=== PATIENT | male | born 1965 | race Caucasian/White ===

== ENCOUNTER 2018-08-24 09:03 | Observation (INO) | payer SELFPAY ==
[2018-08-24] MEDS ORDERED: NS 1,000 ML IV ONE ×2 (09:27→10:19)
--- NOTE | 2018-08-24 09:27 | EDPHY ---
General - History History Review: I reviewed the patient's medical records Smoking Status: Never smoked Time Seen by Provider: 08/24/18 09:17 Narrative: CHIEF COMPLAINT: Abdominal pain HISTORY OF PRESENT ILLNESS: Patient presents by private vehicle with complaints of right lower quadrant abdominal pain. He states that he felt fine yesterefil around 4:00 p.m.. At that time he developed some upper abdominal pain the described as "pressure and sprain type of pain." He felt as though he needs to have a bowel movement but could not. He also described as "I felt like I needed to move something through my colon, like when I drink kombucha." Over the course of the evening his pain significantly increased to a rating of severe this morning. He did not sleep last night. He had nausea but no vomiting. No recent diarrhea constipation. No previous abdominal surgeries or pathology. No recent trauma. He does report a recent upper respiratory infection over the past 2-3 weeks with mild cough. No chest pain or shortness of breath. Some chills but no fever. He has not had anything in a drink since last night around 8:00 p.m.. Pain is worse with movement palpation. Minimal improvement rest. Does not radiate. He is here because he is concerned it has his appendix. No other associated complaints or modifying factors. REVIEW OF SYSTEMS: 10 systems were reviewed and negative with the exception of the elements mentioned in the history of present illness. PCP: Dr. Mcgrath, and [facility] SPECIALISTS: None PAST MEDICAL HISTORY: Low testosterone. Hypertension, anxiety, "autoimmune deficiency" PAST SURGICAL HISTORY: No recent surgical history SOCIAL HISTORY: Nonsmoker. Lives independently with his girlfriend. 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 Ambulatory. Conversing in full sentences Head: normocephalic, atraumatic Eyes: Pupils equal and round, no conjunctival pallor or injection ENT, Mouth: Mucous membranes slightly dry. Airway patent. Neck: Normal inspection, supple, non-tender Respiratory: Mild rhonchi. No wheezing, crackles or diminishment. No retractions or distress Cardiovascular: Regular rate and rhythm. No murmur Gastrointestinal: Bowel sounds present all 4 quadrants. Abdomen is soft and nondistended. There is moderate tenderness in right lower quadrant and McBurney 's point. Guarding in the right lower quadrant. No tympany. No rigidity. No CVA tenderness. No left-sided tenderness. Negative Rovsing. Equivocal obturator. Back: non-tender, no bony abnormalities Neurological: A&O, nonfocal, normal gait Skin: Warm and dry, no rash Extremities: Nontender, no pedal edema Psychiatric: Mood and affect normal DIFFERENTIAL DIAGNOSES: Including but not limited to appendicitis, colitis, diverticulitis, mesenteric adenitis, enteritis, ureteral colic, renal colic MDM: 9:20 a.m. Acute right lower quadrant tenderness with guarding in voluntarily. Vital signs are within normal limits. He is nontoxic well-appearing. Bowel sounds are present. I do feel he warrants CT imaging given the guarding of the abdomen. Thus I have ordered an i-STAT for expedited CT scan. IV fluid will be administered. Pain medication ordered. He is in no acute distress. He has consented to the CT scan. 9:40 a.m. I-STAT performed and creatinine is normal at 1.0. document image technician notified. 10:10 a.m. I have reviewed the CT scan images myself and with Dr. Lopez, without radiologist. There is evidence of acute appendicitis with surrounding mesenteric stranding. The official radiology interpretation is pending, but I will page surgery further consultation. He is in no acute distress. 11:05 a.m. Case discussed with radiologist Dr. Leblanc. Acute appendicitis. There is also no abnormality in the upper rectum on the left side that will need to be further evaluated outpatient. I discussed this with the patient and will discussed with general surgeon. 11:08 a.m. Case discussed with surgeon Dr. Castillo. He has accepted the patient is service. Strict NPO. Antibiotics discussed. He is admitted in stable condition. He also recommends outpatient colonoscopy for the rectal abnormality on CT scan. 11:40 a.m. Patient has been evaluated by Dr. Castillo. Continue with plan for laparoscopic surgical intervention. SUPERVISION: Patient was independently examined, but I discussed the case with my secondary supervising physician Dr. Lopez CONSULTATION: Surgery (Kd Lugo) Medical Decision Making: PHYSICIAN DOCUMENTATION: The patient was evaluated and managed by the Physician Data Technical Lead and myself. I have reviewed the chart and agree with the findings and plan of care as documented. In addition, I examined the patient myself at 1010. History confirmed as nontraumatic right lower quadrant abdominal pain. Physical findings as follows: Guarding on the right lower quadrant at McBurney's point. CT reviewed, plan for IV antibiotics and General surgery consultation for probable appendicitis. I am the secondary supervising physician. (Porfirio Lopez) - Objective Vital Signs: Initial Vital Signs Temperature (C) 99.1 F 08/24/18 09:13 Heart Rate 76 08/24/18 09:13 Respiratory Rate 16 08/24/18 09:13 Blood Pressure 139/89 H 08/24/18 09:13 O2 Sat (%) 94 08/24/18 09:13 O2 Delivery Mode Nasal Cannula O2 (L/minute) 2 Allergies/Adverse Reactions: No Known Allergies Allergy (Unverified 08/24/18 09:11) Home Medications: Medication Instructions Recorded Lisinopril 11/17/09 Citalopram 08/24/18 Testosterone 08/24/18 Laboratory Results: Laboratory Results 08/24/18 09:33 08/24/18 08/24/18 08/24/18 10:56 09:38 09:33 WBC RBC Hgb POC Hgb 17.7 gm/dL H gm/dL (13.7-17.5) Hct POC Hct 52 % H % (40-51) MCV MCH MCHC RDW Plt Count MPV Neut % (Auto) Lymph % (Auto) [place] % (Auto) Eos % (Auto) Baso % (Auto) Nucleat RBC Rel Count Absolute Neuts (auto) Absolute Lymphs (auto) Absolute Monos (auto) Absolute Eos (auto) Absolute Basos (auto) Absolute Nucleated RBC Immature Gran % Immature Gran # POC Sodium 140 mEq/L mEq/L (135-145) POC Potassium 3.9 mEq/L mEq/L (3.3-5.0) POC Chloride 103 mEq/L mEq/L (97-110) POC BUN 12 mg/dL mg/dL (7-23) POC Creatinine 1.0 mg/dL mg/dL (0.7-1.3) POC Glucose 128 mg/dL H mg/dL (70-100) Total Bilirubin 1.4 mg/dL mg/dL (0.1-1.4) Conjugated Bilirubin 0.1 mg/dL mg/dL (0.0-0.5) Unconjugated Bilirubin 1.3 mg/dL H mg/dL (0.0-1.1) AST 23 IU/L IU/L (17-59) ALT 22 IU/L IU/L (21-72) Alkaline Phosphatase 53 IU/L IU/L (38-126) Total Protein 7.7 g/dL g/dL (6.3-8.2) Albumin 4.3 g/dL g/dL (3.5-5.0) Lipase 59 IU/L IU/L (23-300) Urine Color PALE YELLOW Urine Appearance CLEAR Urine pH 7.0 (5.0-7.5) Ur Specific [place] 1.017 (1.002-1.030) Urine Protein NEGATIVE (NEGATIVE) Urine Ketones NEGATIVE (NEGATIVE) Urine Blood NEGATIVE (NEGATIVE) Urine Nitrate NEGATIVE (NEGATIVE) Urine Bilirubin NEGATIVE (NEGATIVE) Urine Urobilinogen NEGATIVE EU EU (0.2-1.0) Ur Leukocyte Esterase NEGATIVE (NEGATIVE) Urine RBC NONE SEEN /hpf /hpf (0-3) Urine WBC 0-1 /hpf /hpf (0-3) Ur Epithelial Cells NONE SEEN /lpf /lpf (NONE-1+) Urine Mucus TRACE /lpf /lpf (NONE-1+) Urine Glucose NEGATIVE (NEGATIVE) 08/24/18 09:33 WBC 15.15 10^3/uL H 10^3/uL (3.80-9.50) RBC 5.19 10^6/uL 10^6/uL (4.40-6.38) Hgb 17.2 g/dL g/dL (13.7-17.5) POC Hgb Hct 48.2 % % (40.0-51.0) POC Hct MCV 92.9 fL fL (81.5-99.8) MCH 33.1 pg pg (27.9-34.1) MCHC 35.7 g/dL g/dL (32.4-36.7) RDW 12.4 % % (11.5-15.2) Plt Count 184 10^3/uL 10^3/uL (150-400) MPV 10.0 fL fL (8.7-11.7) Neut % (Auto) 85.1 % H % (39.3-74.2) Lymph % (Auto) 8.4 % L % (15.0-45.0) [place] % (Auto) 5.8 % % (4.5-13.0) Eos % (Auto) 0.1 % L % (0.6-7.6) Baso % (Auto) 0.2 % L % (0.3-1.7) Nucleat RBC Rel Count 0.0 % % (0.0-0.2) Absolute Neuts (auto) 12.89 10^3/uL H 10^3/uL (1.70-6.50) Absolute Lymphs (auto) 1.27 10^3/uL 10^3/uL (1.00-3.00) Absolute Monos (auto) 0.88 10^3/uL H 10^3/uL (0.30-0.80) Absolute Eos (auto) 0.02 10^3/uL L 10^3/uL (0.03-0.40) Absolute Basos (auto) 0.03 10^3/uL 10^3/uL (0.02-0.10) Absolute Nucleated RBC 0.00 10^3/uL 10^3/uL (0-0.01) Immature Gran % 0.4 % % (0.0-1.1) Immature Gran # 0.06 10^3/uL 10^3/uL (0.00-0.10) POC Sodium POC Potassium POC Chloride POC BUN POC Creatinine POC Glucose Total Bilirubin Conjugated Bilirubin Unconjugated Bilirubin AST ALT Alkaline Phosphatase Total Protein Albumin Lipase Urine Color Urine Appearance Urine pH Ur Specific [place] Urine Protein Urine Ketones Urine Blood Urine Nitrate Urine Bilirubin Urine Urobilinogen Ur Leukocyte Esterase Urine RBC Urine WBC Ur Epithelial Cells Urine Mucus Urine Glucose Medications Given: Metronidazole/Sodium Chloride (Flagyl 500 Mg (Premix)) 100 mls @ 100 mls/hr IV ONCE ONE PRN Reason: Protocol Stop: 08/24/18 11:15 Last Admin: 08/24/18 10:47 Dose: 100 mls Discontinued Medications Sodium Chloride (Ns) 1,000 mls @ 0 mls/hr IV EDNOW ONE; Wide Open PRN Reason: Protocol Stop: 08/24/18 09:28 Last Admin: 08/24/18 09:38 Dose: 1,000 mls Ceftriaxone Sodium/Dextrose (Rocephin 1 Gm (Premix)) 50 mls @ 100 mls/hr IV EDNOW ONE PRN Reason: Protocol Stop: 08/24/18 10:45 Last Admin: 08/24/18 10:42 Dose: 50 mls Sodium Chloride (Ns) 1,000 mls @ 0 mls/hr IV EDNOW ONE; Wide Open PRN Reason: Protocol Stop: 08/24/18 10:20 Last Admin: 08/24/18 10:43 Dose: 1,000 mls Morphine Sulfate (Morphine) 4 mg IVP EDNOW ONE Stop: 08/24/18 09:28 Last Admin: 08/24/18 09:38 Dose: 4 mg Promethazine HCl (Phenergan) 12.5 mg IVP ONCE ONE Stop: 08/24/18 09:37 Last Admin: 08/24/18 09:38 Dose: 12.5 mg Point of Care Test Results: Chemistry 08/24/18 09:38 POC Sodium 140 mEq/L mEq/L (135-145) POC Potassium 3.9 mEq/L mEq/L (3.3-5.0) POC Chloride 103 mEq/L mEq/L (97-110) POC BUN 12 mg/dL mg/dL (7-23) POC Creatinine 1.0 mg/dL mg/dL (0.7-1.3) POC Glucose 128 mg/dL H mg/dL (70-100) ISTAT H&H 08/24/18 09:38 POC Hgb 17.7 gm/dL H gm/dL (13.7-17.5) POC Hct 52 % H % (40-51) Departure - Departure Disposition: [facility] Inpatient Acute Clinical Impression: Abnormal finding on CT scan Acute appendicitis Qualifiers: Acute appendicitis type: with localized peritonitis Appendicitis gangrene presence: without gangrene Appendicitis perforation presence: without perforation Appendicitis abscess presence: without abscess Qualified Code(s): K35.30 - Acute appendicitis with localized peritonitis, without perforation or gangrene Condition: Good Additional Instructions: 1. After discharge follow-up with primary care physician to discuss further workup of your CT scan finding involving the rectum Referrals: SANDOR MCGRATH [Primary Care Provider] - As per Instructions Reji Castillo MD [Medical Doctor] - As per Instructions
[2018-08-24] MEDS ORDERED: ONDANSETRON 4 MG/2 ML VIAL ONE ×2 (09:34→14:15)
[2018-08-24] MEDS ORDERED: PROMETHAZINE HCL 25 MG/ML INJ ONE (09:36)
[2018-08-24] MEDS ORDERED: PROMETHAZINE HCL 25 MG/ML INJ IVP ONE (09:36)
[2018-08-24 09:42] LABS: PLATELET COUNT 184 10^3/uL (150-400)
[2018-08-24] MEDS ORDERED: IOPAMIDOL (ISOVUE-300) 100 ML BTL ONE (09:44)
--- NOTE | 2018-08-24 12:16 | PDGENHP ---
History and Physical - Chief Complaint abd pain - History of Present Illness 53 y/o male with one day hx abd pain localizing to the RLQ seen in the ED by Kd Lugo PA-C CT showed acute appendicitis/Surgical consult was requested History Information - Allergies/Home Medication List Allergies/Adverse Reactions: No Known Allergies Allergy (Unverified 08/24/18 09:11) Home Medications: Lisinopril [Zestril 40 mg (*)] 40 mg PO HS 11/17/09 [Last Taken 08/22/18] Citalopram Hydrobromide [Celexa] 40 mg PO HS 08/24/18 [Last Taken 08/22/18] Herbals/Supplements -Info Only 1 ea PO DAILY 08/24/18 [Last Taken Unknown] Ibuprofen [Motrin (*)] 200 mg PO DAILY PRN 08/24/18 [Last Taken Unknown] Testosterone [ANDROGEL 1% 5gm pkt (*)] 5 gm TD DAILY 08/24/18 [Last Taken ] I have personally reviewed and updated: family history, medical history, social history, surgical history - Past Medical History hypertension - Surgical History Reports: no pertinent surgical hx - Family History Positive for: non-pertinent - Social History Smoking Status: Never smoked Alcohol Use: Rarely Drug Use: None Review of Systems Review of Systems: Constitutional: Reports: recent illness (felt like a viral syndrome) EENMT: Reports: ear discharge Cardiac: Reports: no symptoms Respiratory: Reports: no symptoms Gastrointestinal: Reports: abdominal pain, abdominal distention, constipation, nausea Genitourinary: Reports: no symptoms Muscolosketal: Reports: no symptoms Physical Exam Physical Exam: Temp Pulse Resp BP Pulse Ox 36.5 C 56 L 18 133/88 H 95 08/24/18 10:00 08/24/18 10:00 08/24/18 10:00 08/24/18 10:00 08/24/18 10:00 Constitutional: appears nourished Eyes: anicteric sclera Ears, Nose, Mouth, Throat: dry mucous membranes Cardiovascular: regular rate and rhythym, no murmur, rub, or gallop Respiratory: no respiratory distress, no rales or rhonchi, clear to auscultation Gastrointestinal: other (hypoactive bowel sounds, tender RM/RUQ with guarding) Genitourinary: no bladder fullness Skin: warm Neurologic: AAOx3 Psychiatric: interacting appropriately, not anxious, other (expressed concerns about his 's surgery scheduled for tomorrow here at [facility]) Lab Data & Imaging Review 08/24/18 09:33 WBC 15.15 10^3/uL (3.80-9.50) H 08/24/18 09:33 RBC 5.19 10^6/uL (4.40-6.38) 08/24/18 09:33 Hgb 17.2 g/dL (13.7-17.5) 08/24/18 09:33 POC Hgb 17.7 gm/dL (13.7-17.5) H 08/24/18 09:38 Hct 48.2 % (40.0-51.0) 08/24/18 09:33 POC Hct 52 % (40-51) H 08/24/18 09:38 MCV 92.9 fL (81.5-99.8) 08/24/18 09:33 MCH 33.1 pg (27.9-34.1) 08/24/18 09:33 MCHC 35.7 g/dL (32.4-36.7) 08/24/18 09:33 RDW 12.4 % (11.5-15.2) 08/24/18 09:33 Plt Count 184 10^3/uL (150-400) 08/24/18 09:33 MPV 10.0 fL (8.7-11.7) 08/24/18 09:33 Neut % (Auto) 85.1 % (39.3-74.2) H 08/24/18 09:33 Lymph % (Auto) 8.4 % (15.0-45.0) L 08/24/18 09:33 [place] % (Auto) 5.8 % (4.5-13.0) 08/24/18 09:33 Eos % (Auto) 0.1 % (0.6-7.6) L 08/24/18 09:33 Baso % (Auto) 0.2 % (0.3-1.7) L 08/24/18 09:33 Nucleat RBC Rel Count 0.0 % (0.0-0.2) 08/24/18 09:33 Absolute Neuts (auto) 12.89 10^3/uL (1.70-6.50) H 08/24/18 09:33 Absolute Lymphs (auto) 1.27 10^3/uL (1.00-3.00) 08/24/18 09:33 Absolute Monos (auto) 0.88 10^3/uL (0.30-0.80) H 08/24/18 09:33 Absolute Eos (auto) 0.02 10^3/uL (0.03-0.40) L 08/24/18 09:33 Absolute Basos (auto) 0.03 10^3/uL (0.02-0.10) 08/24/18 09:33 Absolute Nucleated RBC 0.00 10^3/uL (0-0.01) 08/24/18 09:33 Immature Gran % 0.4 % (0.0-1.1) 08/24/18 09:33 Immature Gran # 0.06 10^3/uL (0.00-0.10) 08/24/18 09:33 POC Sodium 140 mEq/L (135-145) 08/24/18 09:38 POC Potassium 3.9 mEq/L (3.3-5.0) 08/24/18 09:38 POC Chloride 103 mEq/L (97-110) 08/24/18 09:38 POC BUN 12 mg/dL (7-23) 08/24/18 09:38 POC Creatinine 1.0 mg/dL (0.7-1.3) 08/24/18 09:38 POC Glucose 128 mg/dL (70-100) H 08/24/18 09:38 Total Bilirubin 1.4 mg/dL (0.1-1.4) 08/24/18 09:33 Conjugated Bilirubin 0.1 mg/dL (0.0-0.5) 08/24/18 09:33 Unconjugated Bilirubin 1.3 mg/dL (0.0-1.1) H 08/24/18 09:33 AST 23 IU/L (17-59) 08/24/18 09:33 ALT 22 IU/L (21-72) 08/24/18 09:33 Alkaline Phosphatase 53 IU/L (38-126) 08/24/18 09:33 Total Protein 7.7 g/dL (6.3-8.2) 08/24/18 09:33 Albumin 4.3 g/dL (3.5-5.0) 08/24/18 09:33 Lipase 59 IU/L (23-300) 08/24/18 09:33 Urine Color PALE YELLOW 08/24/18 10:56 Urine Appearance CLEAR 08/24/18 10:56 Urine pH 7.0 (5.0-7.5) 08/24/18 10:56 Ur Specific [place] 1.017 (1.002-1.030) 08/24/18 10:56 Urine Protein NEGATIVE (NEGATIVE) 08/24/18 10:56 Urine Ketones NEGATIVE (NEGATIVE) 08/24/18 10:56 Urine Blood NEGATIVE (NEGATIVE) 08/24/18 10:56 Urine Nitrate NEGATIVE (NEGATIVE) 08/24/18 10:56 Urine Bilirubin NEGATIVE (NEGATIVE) 08/24/18 10:56 Urine Urobilinogen NEGATIVE EU (0.2-1.0) 08/24/18 10:56 Ur Leukocyte Esterase NEGATIVE (NEGATIVE) 08/24/18 10:56 Urine RBC NONE SEEN /hpf (0-3) 08/24/18 10:56 Urine WBC 0-1 /hpf (0-3) 08/24/18 10:56 Ur Epithelial Cells NONE SEEN /lpf (NONE-1+) 08/24/18 10:56 Urine Mucus TRACE /lpf (NONE-1+) 08/24/18 10:56 Urine Glucose NEGATIVE (NEGATIVE) 08/24/18 10:56 Assessment & Plan Assessment: Abnormal finding on CT scan (Acute) Acute appendicitis (Acute)
[2018-08-24] MEDS ORDERED: BUPIVACAINE 0.25% 30 ML SDV ONE ×2 (12:55→12:56)
[2018-08-24] MEDS ORDERED: LR 1,000 ML IV ONE (13:28)
[2018-08-24] MEDS ORDERED: MIDAZOLAM 2 MG/2 ML VIAL IVP ONE (13:37)
--- NOTE | 2018-08-24 13:37 | PDANEPAE ---
ANE History of Present Illness here for lap velialaura ANE Past Medical History - Cardiovascular History Hx Hypertension: No Hx Arrhythmias: No Hx Chest Pain: No Hx Coronary Artery / Peripheral Vascular Disease: No Hx CHF / Valvular Disease: No Hx Palpitations: No - Pulmonary History Hx COPD: No Hx Asthma/Reactive Airway Disease: No Hx Recent Upper Respiratory Infection: No Hx Oxygen in Use at Home: No Hx Sleep Apnea: No - Endocrine History Hx Diabetes: No Hypothyroid: No Hyperthyroid: No Obesity: no - Renal History Hx Renal Disorders: No ANE Review of Systems Review of systems is: negative Review of Systems: - Exercise capacity Exercise capacity: >=4 METS ANE Patient History - Allergies Allergies/Adverse Reactions: No Known Allergies Allergy (Unverified 08/24/18 09:11) - Home Medications Home medications: home medication list seen and reviewed Home Medications: Lisinopril [Zestril 40 mg (*)] 40 mg PO HS 11/17/09 [Last Taken 08/22/18] Citalopram Hydrobromide [Celexa] 40 mg PO HS 08/24/18 [Last Taken 08/22/18] Herbals/Supplements -Info Only 1 ea PO DAILY 08/24/18 [Last Taken Unknown] Ibuprofen [Motrin (*)] 200 mg PO DAILY PRN 08/24/18 [Last Taken Unknown] Testosterone [ANDROGEL 1% 5gm pkt (*)] 5 gm TD DAILY 08/24/18 [Last Taken ] - NPO status NPO Status: no food or drink >8 hours NPO Since - Liquids (Date): 08/24/18 NPO Since - Liquids (Time): 08:30 NPO Since - Solids (Date): 08/23/18 NPO Since - Solids (Time): 16:00 - Anes Hx Anes Hx: no prior problems - Smoking Hx Smoking Status: Never smoked - Alcohol Use Alcohol Use: Rarely ANE Labs/Vital Signs - Labs Result Diagrams: 08/24/18 09:33 - Vital Signs Vital Signs: reviewed preoperatively; see RN documention for details Blood Pressure: 115/68 Heart Rate: 59 Respiratory Rate: 18 O2 Sat (%): 98 Height: 177.8 cm Weight: 77.111 kg ANE Physical Exam - Airway Neck exam: FROM Mallampati Score: Class 1 - Pulmonary Pulmonary: no respiratory distress - Cardiovascular Cardiovascular: regular rate and rhythym - ASA Status ASA Status: II ANE Anesthesia Plan Anesthesia Plan: general endotracheal anesthesia
[2018-08-24] MEDS ORDERED: PROMETHAZINE HCL 25 MG/ML INJ IVP PRN (13:44)
[2018-08-24] MEDS ORDERED: ONDANSETRON 4 MG/2 ML VIAL IVP PRN ×2 (13:44→15:23)
[2018-08-24] MEDS ORDERED: DEXAMETHASONE 4 MG/ML VIAL IVP PRN (13:44)
[2018-08-24] MEDS ORDERED: oxyCODONE IR 5 MG TAB PO PRN (13:44)
[2018-08-24] MEDS ORDERED: ALBUTEROL 3 ML DEYVIAL IH PRN (13:44)
[2018-08-24] MEDS ORDERED: HYDROCODONE/APAP 5/325 TAB PO PRN ×2 (13:44→15:23)
[2018-08-24] MEDS ORDERED: NALOXONE HCL 0.4 MG/ML INJ IVP PRN (13:44)
[2018-08-24] MEDS ORDERED: HYDROmorphONE/DILAUDID 2 MG/ML INJ IVP PRN (13:44)
[2018-08-24] MEDS ORDERED: fentaNYL 100 MCG/2 ML INJ IVP PRN (13:44)
[2018-08-24] MEDS ORDERED: PROPOFOL/EMULSION 500 MG/50 ML BOTTLE IV ONE (14:02)
[2018-08-24] MEDS ORDERED: fentaNYL 100 MCG/2 ML INJ ONE ×2 (14:05→15:33)
[2018-08-24] MEDS ORDERED: DEXAMETHASONE 4 MG/ML VIAL ONE (14:15)
[2018-08-24] MEDS ORDERED: ePHEDrine SULFATE 25 MG/5 ML SYR ONE (14:33)
[2018-08-24] MEDS ORDERED: SUGAMMADEX SODIUM 200 MG/2 ML VIAL IVP ONE (14:50)
--- NOTE | 2018-08-24 15:23 | POSTOPPROG ---
Post Op Note Date of Operation: 08/24/18 Surgeon: Reji Castillo (, FACS) Anesthesiologist: Andrew Mccoy MD Anesthesia: GET(General Endotracheal) Pre-op Diagnosis: acute appendicitis Procedure: lap appendectomy Findings: acute appendicitis Inf/Abcess present in the surg proc area at time of surgery?: Yes Depth: Organ Space EBL: Minimal (5 ml)
[2018-08-24] MEDS ORDERED: LR 1,000 ML IV SCH (15:30)
[2018-08-24] MEDS ORDERED: ALBUTEROL 3 ML DEYVIAL ONE (16:30)
[2018-08-24] MEDS: IBUPROFEN 600 MG TAB PO SCH (21:55)
[2018-08-24] MEDS: CITALOPRAM 20 MG TAB PO SCH (21:55)
[2018-08-24] MEDS: LISINOPRIL 40 MG TAB PO SCH (21:55)
--- NOTE | 2018-08-25 05:46 | GOP ---
DATE OF OPERATION: 08/24/2018 SURGEON: Reji Castillo MD, FACS ANESTHESIA: General endotracheal. ANESTHESIOLOGIST: Andrew Mccoy MD PREOPERATIVE DIAGNOSIS: Acute appendicitis. POSTOPERATIVE DIAGNOSIS: Acute appendicitis. PROCEDURE PERFORMED: Laparoscopic appendectomy. FINDINGS: Acute suppurative appendicitis with abnormal position of the cecum close to the subhepatic space. ESTIMATED BLOOD LOSS: 5 mL. DESCRIPTION OF PROCEDURE: After informed consent was obtained, the patient was brought to the operating room and placed under general anesthesia. The abdomen was prepped and draped in usual fashion. Before proceeding, a time-out and identification of the patient was performed. 0.25% Marcaine was used to infiltrate all incision sites. The first port was placed in the infraumbilical position. This was a 12 mm port placed after insufflating the abdominal cavity with CO2 gas to a pressure of 15 mmHg with a Veress needle. A 30 degree 5 mm scope was introduced, and additional 5 mm ports were placed above and below the umbilicus in the midline. This allowed introduction of atraumatic grasping forceps. The appendix was identified, grasped and retracted anteriorly. This allowed taking down the mesoappendix with a Harmonic Scalpel. After the mesoappendix was divided down to the base of the appendix, the appendix was from the cecum with a single firing of the FILOMENA stapler. The appendix was retrieved through the 12 mm port site using an Endopouch. The operative field appeared hemostatic. The umbilical fascial defect was repaired with a transfascial closure needle and 0 Vicryl suture. The pneumoperitoneum was evacuated. The remaining ports were removed. Subcutaneous tissues were closed with 3-0 Monocryl suture. Skin was closed with 4-0 Monocryl suture in a subcuticular fashion followed by Dermabond. The patient was extubated and brought to the recovery room in satisfactory condition. Needle, sponge, and instrument count were correct. COMPLICATIONS: None. /[id number]/MODL MTDD
[2018-08-25] MEDS: IBUPROFEN 600 MG TAB PO SCH ×3 (05:57→22:03)
--- NOTE | 2018-08-25 07:43 | PDDCSUM ---
Discharge Summary Discharge Summary: #[id number] BRITTANI Castillo MD, FACS
--- NOTE | 2018-08-25 07:49 | SOAPPROG ---
Downtime Inpatient MD Late Entry SOAP Note: After I left Mr. Rosales he was taken off supplemental O2 and his sats dropped into the low 80s I recommended ambulation and deep breathing/incentive spirometry and will obtain a CXR He is a daily marijuana smoker and this could contribute to his pulmonary dysfunction post operatively. If he is unable to wean off O2 will request a Hospitalist evaluation for management recommendations
--- NOTE | 2018-08-25 08:01 | SOAPPROG ---
Downtime Inpatient MD Late Entry SOAP Note: CXR shows possible pulmonary edema. Will request hospitalist consult and continue supplemental O2. Carlos Castillo MD, FACS
--- NOTE | 2018-08-25 08:16 | GDS ---
After the patient was discharged he was noted to have hypoxemia. A CXR showed R >L pulmonary edema vs. R lung infiltrate Discharge was cancelled and a hospitalist consult was requested. DISCHARGE DIAGNOSES: 1. Acute appendicitis. 2. Hypertension. 3. History of depression. HOSPITAL COURSE: For details of admission history and physical, please see dictated summary. Briefly, the patient is a 53-year-old male who presents with a 1 day history of abdominal pain, was found to have acute appendicitis, and was admitted for laparoscopic appendectomy. He received preoperatively 1 g of ceftriaxone and 500 mg of Flagyl. At time of surgery, he was found to have acute suppurative appendicitis without evidence of perforation or gangrene. The patient was admitted for postoperative observation, had tolerated the soft diet, and was discharged home the following morning, given instructions in diet and activity advancement, and will follow up in my office in 1 to 2 weeks. An incidental finding on the patient's preoperative CT was an area adjacent to the rectosigmoid junction of indeterminate significance, possibly representing a retroperitoneal lipoma. Followup was recommended by Radiology. I discussed the options with the patient, including MRI of the pelvis versus colonoscopy. He will follow up with his primary care physician, Dr. Marbin Mcgrath for further workup of this area. DISCHARGE MEDICATIONS: Patient will resume Celexa at 40 mg p.o. q.h.s., lisinopril 40 mg p.o. q.h.s. In addition was given prescription for hydrocodone 5/325 mg 1 every 4 hours as needed for pain #14 and Senokot S 1 p.o. b.i.d. Patient also takes testosterone 5 g packet of AndroGel 1% daily. /[id number]/MODL MTDD
[2018-08-25] MEDS: TESTOSTERONE 1% 5 GM GEL PKT TD SCH (10:13)
--- NOTE | 2018-08-25 14:22 | ASMTCMCOM ---
CM Note CM Note Notes: 08/25/2018 Case Management Note Reviewed chart. Pt was admitted for treament of acute appendicitis; pulmonary effusion found today. There are no therapy evals ordered at this time. There are no identified case management d/c needs identified d/t pt age, employment status and independence in ADL's prior to admission. Case Management d/c poc: independent with follow up as directed. Case Management available if needs change. Date Signed: 08/25/2018 02:22 PM Electronically Signed By:Bri Junior RN
--- NOTE | 2018-08-25 14:33 | GCON ---
REFERRING PHYSICIAN: Reji Castillo MD REASON FOR CONSULTATION: Evaluation of hypoxemia. HISTORY OF PRESENT ILLNESS: The patient is a 53-year-old gentleman without any significant past medical history, who presented to the emergency room with acute abdominal pain. He had a CT scan that showed acute appendicitis. He was seen and evaluated by Dr. Castillo and had a laparoscopic appendectomy. His postoperative course has been stable, except that he was noted to be hypoxic. His oxygen levels were 85% on room air. During my evaluation, he has some complaints of some soreness at the abdominal incision sites. He also describes having a cold for approximately 3 weeks. It is typical for him to get a chest cold in the fall. He notes that he has had some green sinus drainage and congestion. He has no cough, but his main complaint is being congested. He is normally very active. He swims regularly but has not been able to due to his symptoms. He denies any fever, chills, or chest pain. He also notes that he gets winded with hiking. He said on a recent hike, he had to stop every 12 feet. He was able to hike without any difficulty approximately a year ago. During my evaluation, he is overall feeling fine. PAST MEDICAL HISTORY: 1. Hypertension. 2. Depression. 3. History of bronchitis that has been treated with steroids. PAST SURGICAL HISTORY: Status post appendectomy on this admission. SOCIAL HISTORY: He does not currently smoke. He has a history of smoking. He quit approximately 15 years ago. He smoked 8 cigarettes a day for approximately 10 years. He does not use alcohol. He does use cannabis. He currently is in a relationship. He does not have children. For a living, he drives for [employer]. FAMILY HISTORY: His father is 86 and has Alzheimer's. His mother is 85 and overall healthy. ALLERGIES: Seasonal allergies. HOME MEDICATIONS: Lisinopril 40 mg p.o. q.h.s., herbal supplements 1 tab daily , Celexa 40 mg p.o. q.h.s., testosterone 5 g topical daily, senna 1 tab p.o. b.i.d., ibuprofen 600 mg p.o. q.8 hours. REVIEW OF SYSTEMS: A 10-point review of systems was performed, was negative, other than the pertinent positives in the HPI and past medical history. PHYSICAL EXAM: GENERAL: The patient is a 53-year-old male who appears to be overall healthy and is in no acute distress. VITAL SIGNS: Blood pressure is 98 /60, heart rate of 60, respiratory rate of 16, O2 sats on 1 L 90%, temperature 36.6 Celsius. EYES: Pupils are equal and reactive. EOMs are intact. No conjunctival injection noted. ENT: Normal ears, hearing intact. Oral airways moist. NECK: Trachea is midline. CARDIOVASCULAR: He is in a regular rate and rhythm. No murmurs, rubs, or gallops noted. CHEST/LUNGS: Normal respiratory effort, except for a few rhonchi in his right lower lobe. ABDOMEN: Soft, slightly tender over the incisional sites. The incisions appear to be well approximated. No redness or drainage noted. MUSCULOSKELETAL: Normal gait, equal upper and lower extremity strength. PSYCHIATRIC: He is alert and oriented. Normal mood, affect, judgment, insight and normal memory. DATA REVIEWED: 1. Chest x-ray shows bilateral upper lobe pneumonia, right greater than left. LABORATORY DATA: This is noted on admission. On 08/24, his white blood cell count was 15.15, hemoglobin 17.2, hematocrit 48.2, platelet count of 184. Chemistry: Sodium is 140, potassium 3.9. Chloride is 103. Glucose is 128. Unconjugated bilirubin 1.3. Conjugated is 0.1. Total bilirubin is 1.4. A urinalysis was noted to be negative. ASSESSMENT/PLAN: 1. Acute hypoxemia. I suspect this is likely an upper viral respiratory infection. Will check a respiratory PCR, as well as a procalcitonin. His x- ray is somewhat concerning for pneumonia. Will recheck labs in the morning. At this time, will not treat because I suspect it is viral. Will check a BNP in addition. 2. Abdominal pain secondary to appendicitis. He is doing quite well. Continue pain medications. 3. Hypertension. Resume lisinopril. 4. Depression. Resume Celexa. PLAN: The hospitalist will continue to follow this patient. Will further evaluate if antibiotic therapy is indicated. Thank you for this consultation. /[id number]/MODL MTDD
[2018-08-25] MEDS: IPRATROPIUM/ALBUTEROL 3 ML DEYVIAL IH SCH ×2 (15:31→16:17)
[2018-08-25] MEDS ORDERED: BISACODYL 10 MG SUPP PR PRN (19:04)
[2018-08-25] MEDS ORDERED: POLYETHYLENE GLYCOL 3350 17 GM PKT PO PRN (19:04)
[2018-08-25] MEDS ORDERED: LACTULOSE 20 GM/30 ML UDCUP PO PRN (19:04)
[2018-08-25] MEDS ORDERED: MAGNESIUM HYDROXIDE 30 ML UDCUP PO PRN (19:04)
[2018-08-25] MEDS: SENNOSIDES/DOCUSATE SODIUM TAB PO SCH (22:03)
[2018-08-25] MEDS: CITALOPRAM 20 MG TAB PO SCH (22:03)
[2018-08-25] MEDS: LISINOPRIL 40 MG TAB PO SCH (22:04)
[2018-08-26] MEDS: IPRATROPIUM/ALBUTEROL 3 ML DEYVIAL IH SCH ×3 (04:18→11:24)
[2018-08-26] MEDS: IBUPROFEN 600 MG TAB PO SCH ×2 (05:23→14:54)
[2018-08-26 05:31] LABS: PLATELET COUNT 142 10^3/uL (150-400)
[2018-08-26] MEDS: SENNOSIDES/DOCUSATE SODIUM TAB PO SCH (08:47)
[2018-08-26] MEDS: TESTOSTERONE 1% 5 GM GEL PKT TD SCH (08:47)
[2018-08-26] MEDS ORDERED: IOPAMIDOL (ISOVUE 370) 100 ML BTL IV ONE (08:57)
--- NOTE | 2018-08-26 10:18 | HOSPPROG ---
Hospitalist Progress Note Assessment/Plan: 53M POD#2 s/p appendectomy # hypoxia - CTA neg for PE - clinically not c/w pneumonia - suspect d/t atelectasis - encourage IS, will try to address constipation # constipation - will try suppository Subjective: abd feels distended; denies productive cough Objective: Vital Signs Temp Pulse Resp BP Pulse Ox 36.6 C 60 12 108/61 90 L 08/26/18 08:00 08/26/18 08:00 08/26/18 08:00 08/26/18 08:00 08/26/18 08:00 Microbiology 08/25/18 11:24 Respiratory Panel (PCR) - Final Nasal, Sinus - Anaerobic Tube/Swab No Organism Detected Laboratory Results 08/26/18 04:30 08/26/18 04:30 08/25/18 08/26/18 08/27/18 05:59 05:59 05:59 Intake Total 2725 1220 Output Total 20 Balance 2705 1220 chart reviewed CXR personally reviewed - Physical Exam Constitutional: no apparent distress, appears nourished Cardiovascular: regular rate and rhythym, no murmur, rub, or gallop Respiratory: no respiratory distress, reduced air movement (mild L base), inspiratory crackles (R base), No clear to auscultation ICD10 Worksheet Patient Problems: Problems Problem Status Onset Abnormal finding on CT scan Acute Acute appendicitis Acute
[2018-08-26] MEDS ORDERED: IPRATROPIUM/ALBUTEROL 3 ML DEYVIAL IH PRN (11:27)
[2018-08-26] MEDS ORDERED: MAGNESIUM CITRATE 300 ML BOTTLE PO ONE (14:42)
--- NOTE | 2018-08-26 14:47 | SOAPPROG ---
SOAP Progress Note Assessment/Plan: Assessment: POST OP HYPOXEMIA/possible neg pressure pulmonary edema in combination with atelectasis resolving, O2 sat 90% RA currently Plan:DC home FU my office next week 08/26/18 17:29 Subjective: wants to go home Objective: Vital Signs Temp Pulse Resp BP Pulse Ox 37.0 C 72 16 141/74 H 81 L 08/26/18 12:00 08/26/18 12:00 08/26/18 12:00 08/26/18 12:00 08/26/18 12:00 Microbiology 08/25/18 11:24 Respiratory Panel (PCR) - Final Nasal, Sinus - Anaerobic Tube/Swab No Organism Detected Laboratory Results 08/26/18 04:30 08/26/18 04:30 08/25/18 08/26/18 08/27/18 05:59 05:59 05:59 Intake Total 2725 1220 Output Total 20 Balance 2705 1220 Physical Exam - Physical Exam General Appearance: no apparent distress Respiratory: lungs clear, decreased breath sounds, prolonged expiration Cardiac/Chest: regular rate, rhythm Abdomen: non-tender, soft, other (incisions healing well without infection) Male Genitalia: deferred Rectal: deferred Skin: warm/dry Neuro/Psych: oriented x 3, other (patient became agitated at the nurses station demanding to be discharged) ICD10 Worksheet Patient Problems: Problems Problem Status Onset Abnormal finding on CT scan Acute Acute appendicitis Acute
[2018-08-26 15:33] VITALS: BP 144/91
--- NOTE | 2018-08-26 19:36 | GDS ---
DISCHARGE DIAGNOSIS: 1. Acute appendicitis. 2. Postoperative hypoxemia. PROCEDURE PERFORMED: 08/24/2018, laparoscopic appendectomy. The patient was originally discharged on the morning after surgery and then discharge was canceled be cause of postoperative hypoxemia. The patient had O2 sats in the high 70s, low 80s on the morning af ter surgery, though was relatively asymptomatic. The patient had a difficult emergence from anesthes ia and was biting on his endotracheal tube. I suspected negative pressure pulmonary edema and a ches t x-ray was performed which showed bilateral infiltrates. It was not clear initially if this was due to an aspiration preexisting pneumonia or pulmonary edema. A hospitalist consult was obtained. Discharge was canceled and the patient was placed on supplementa l oxygen. Dr. Fred Molina saw the patient and ordered a CT angiogram with contrast to rule out pulmonary embolism and this was negative for PE but did show bilateral infiltrates consistent with re gional pulmonary edema, in addition to atelectasis. With incentive spirometry, increased ambulation and supplemental oxygen, patient improved. At time of discharge on the evening of the , his O2 sat s were in the 90% range. He was instructed in diet and activity advancement and will follow up in my office in the upcoming week. The patient was tolerating a regular diet and had a bowel movement ricardo or to discharge. DISCHARGE MEDICATIONS: Patient will continue citalopram 40 mg at bedtime, lisinopril 40 mg p.o. at b edtime, MiraLAX 17 g p.o. daily, Senokot S 1 p.o. twice daily p.r.n. #30, and hydrocodone 1-2 q.4 darren rs p.r.n. pain, and testosterone 5 g transdermal daily. Condition at time of discharge improved. Followup arranged in my office in the upcoming week. /[id number]/MODL
--- NOTE | 2018-08-28 14:52 | CPEKG ---
Test Reason : OPEN Blood Pressure : / mmHG Vent. Rate : 067 BPM Atrial Rate : 068 BPM P-R Int : 184 ms QRS Dur : 096 ms QT Int : 361 ms P-R-T Axes : 059 045 031 degrees QTc Int : 381 ms Sinus rhythm Borderline T wave abnormalities Confirmed by Jeffrey Encinas ([id number]) on 08/28/2018 2:51:21 PM Referred By: Confirmed By:Jeffrey Encinas
--- NOTE | 2018-09-01 10:45 | GPROG ---
POSTANESTHESIA CARE NOTE DATE OF SERVICE: 08/24/2018 This patient underwent a laparoscopic appendectomy with Dr. Castillo. The patient was taken to the PACU in stable condition. The patient's pain and nausea were adequately controlled. There were no appare nt complications from this anesthetic. /[id number]/MODL
== END 2018-08-26 18:17 | disposition home or self-care (01) ==
LOC: F3E 17:27
PROVIDERS: ADMIT Surgery; ATTEND Surgery
PROC: 0DTJ4ZZ Resection of Appendix, Percutaneous Endoscopic Approach (ICD-10-PCS; principal; 2018-08-24 13:30)
DX: K35.80 Unspecified acute appendicitis (principal)
CPT/HCPCS: 82435-PO; 82565-PO; 82947-PO; 84132-PO; 84295-PO; 84520-PO; 85014-PO; 96374; G0378; J0696; J1100; J2250; J2270; J2405; J2550; J2704; J3010; J7613; Q9967